=== PATIENT | female | born 1980 | race African-American/Black ===

== ENCOUNTER 2021-06-03 15:49 | Observation (INO) | payer OTHER ==
[2021-06-03 15:53] VITALS: BMI 20.9
[2021-06-03] MEDS ORDERED: ACETAMINOPHEN INJECTION 100 ML IVPB ONE (16:09)
[2021-06-03] MEDS ORDERED: METOCLOPRAMIDE HCL INJECTION 10 MG/2 ML VIAL ONE (16:09)
[2021-06-03] MEDS ORDERED: ACETAMINOPHEN 1000 MG/100 ML VIAL (NON FORMULARY) IVPB ONE (16:23)
[2021-06-03] MEDS ORDERED: MAGNESIUM 1GM/D5W 100ML - 100 ML IVPB IVPB ONE (16:23)
[2021-06-03] MEDS ORDERED: METOCLOPRAMIDE HCL INJECTION 10 MG/2 ML VIAL IVPUSH ONE (16:23)
[2021-06-03] MEDS ORDERED: LACTATED RINGERS SOLUTION 1,000 ML/1,000 ML INFUS.BAG IV STA (16:24)
[2021-06-03] MEDS ORDERED: MAGNESIUM 1GM/D5W - 1 GM/100 ML IVPB IVPB ONE (16:29)
[2021-06-03 16:45] LABS: BASO % 0.3 % (0-2.0); EOS % 0.1 % (0-4.5); HEMATOCRIT 38.2 % (32.4-45.2); HEMOGLOBIN 12.3 GM/dL (10.7-15.3); LYMPH % 11.2 % (8-40); MCH 26.4 pg (25.7-33.7); MCHC 32.2 g/dl (32.0-36.0); MEAN CELL VOLUME 82.1 fl (80-96); MEAN PLT VOLUME 7.7 fl (7.5-11.1); MONO % 6.6 % (3.8-10.2); NEUT % 81.8 % (42.8-82.8); PLATELET COUNT 282 10^3/uL (134-434); RBC 4.66 M/mm3 (3.60-5.2); RDW 13.6 % (11.6-15.6); WHITE BLOOD COUNT 9.5 K/mm3 (4.0-10.0)
[2021-06-03 16:51] LABS: INR 1.1 (0.83-1.09); PROTHROMBIN TIME (PATIENT) 13.5 SEC (9.7-13.0)
[2021-06-03 17:02] LABS: CHLORIDE 107 mmol/L (98-107); SODIUM 142 mmol/L (136-145)
[2021-06-03 17:04] LABS: ALBUMIN 4.8 g/dl (3.4-5.0); ANION GAP 12 MMOL/L (8-16); BLOOD UREA NITROGEN 11.6 mg/dL (7-18); CO2 23 mmol/L (21-32); GLUCOSE,RANDOM 81 mg/dL (74-106)
[2021-06-03 17:08] LABS: BILIRUBIN,TOTAL 0.8 mg/dL (0.2-1); CHOLESTEROL 195 mg/dL (50-200); CREATININE 1.2 mg/dL (0.55-1.3); LDL CHOLESTEROL (ONLY SJRH) 91 mg/dL (5-100); SGOT/AST 15 U/L (15-37); SGPT/ALT 14 U/L (13-61); TOT PROT 8.9 g/dl (6.4-8.2); TRIGLYCERIDES 80 mg/dL (0-150)
[2021-06-03 17:09] LABS: ALK PHOS 54 U/L (45-117); HDL CHOLESTEROL 95 mg/dL (40-60)
[2021-06-03] MEDS ORDERED: GABAPENTIN 300 MG CAPSULE PO ONE (17:22)
[2021-06-03] MEDS ORDERED: GABAPENTIN 100 MG CAPSULE ONE (17:35)
[2021-06-03 18:47] LABS: PH,URINE 8.5 (5.0-8.0); URINE APPEARANCE CLEAR; URINE BILIRUBIN NEGATIVE (NEGATIVE); URINE COLOR YELLOW; URINE GLUCOSE (UA) NEGATIVE (NEGATIVE); URINE KETONE NEGATIVE (NEGATIVE); URINE LEUK ESTERASE NEGATIVE (NEGATIVE); URINE NITRITE NEGATIVE (NEGATIVE); URINE PROTEIN NEGATIVE (NEGATIVE); URINE UROBILINOGEN 0.2 mg/dL (0.2-1.0)
[2021-06-03 18:52] LABS: URINE BENZODIAZEPINES NEGATIVE (NEGATIVE)
[2021-06-03 18:53] LABS: OPIATES, URI NEGATIVE (NEGATIVE); PHENCYCLIDINE,URINE NEGATIVE (NEGATIVE)
[2021-06-03 19:17] LABS: COCAINE, UR NEGATIVE (NEGATIVE); METHADONE, UR NEGATIVE (NEGATIVE); URINE AMPHETAMINES NEGATIVE (NEGATIVE); URINE BARBITURATES NEGATIVE (NEGATIVE)
[2021-06-03] MEDS ORDERED: hydrALAZINE HCL 20 MG/ML VIAL IVPUSH PRN (20:13)
[2021-06-03] MEDS ORDERED: LORazepam 2 MG/ML SDV VIAL IVPUSH PRN (20:14)
[2021-06-03] MEDS ORDERED: hydrALAZINE HCL 20 MG/ML VIAL ONE (21:00)
[2021-06-04] MEDS ORDERED: IBUPROFEN 400 MG TABLET (FP) PO ONE ×2 (01:20→01:32)
[2021-06-04] MEDS ORDERED: IBUPROFEN 400 MG TABLET (FP) PO PRN (04:50)
[2021-06-04 05:25] LABS: BASO % 0.2 % (0-2.0); HEMATOCRIT 35.2 % (32.4-45.2); HEMOGLOBIN 11.5 GM/dL (10.7-15.3); MCH 26.8 pg (25.7-33.7); MCHC 32.6 g/dl (32.0-36.0); MEAN CELL VOLUME 82.2 fl (80-96); MONO % 2.6 % (3.8-10.2); NEUT % 91.2 % (42.8-82.8); PLATELET COUNT 247 10^3/uL (134-434); RBC 4.28 M/mm3 (3.60-5.2); RDW 13.5 % (11.6-15.6); WHITE BLOOD COUNT 10.1 K/mm3 (4.0-10.0)
[2021-06-04 05:48] LABS: CALCIUM 8.9 mg/dL (8.5-10.1); CHLORIDE 107 mmol/L (98-107); SODIUM 141 mmol/L (136-145)
[2021-06-04 05:49] LABS: ANION GAP 10 MMOL/L (8-16); BLOOD UREA NITROGEN 12.4 mg/dL (7-18); CO2 23 mmol/L (21-32); GLUCOSE,RANDOM 115 mg/dL (74-106); MAGNESIUM 2.3 mg/dL (1.8-2.4)
[2021-06-04] MEDS ORDERED: DULoxetine HCL 30 MG CAPSULE.DR PO ONE (09:34)
[2021-06-04] MEDS ORDERED: HYDROCHLOROTHIAZIDE 25 MG TABLET (FP) ONE (09:34)
[2021-06-04] MEDS ORDERED: LISINOPRIL 5 MG TABLET ONE (09:34)
[2021-06-04] MEDS ORDERED: DULoxetine HCL 30 MG CAPSULE.DR PO SCH (10:00)
[2021-06-04] MEDS ORDERED: LISINOPRIL 5 MG TABLET PO SCH (10:00)
[2021-06-04] MEDS ORDERED: HYDROCHLOROTHIAZIDE 25 MG TABLET (FP) PO SCH (10:00)
[2021-06-04 10:10] LABS: PLATELET ESTIMATE ADEQUATE
[2021-06-04 11:09] VITALS: TEMP 98.5
[2021-06-04 12:23] LABS: CHOLESTEROL 175 mg/dL (50-200); TRIGLYCERIDES 57 mg/dL (0-150)
[2021-06-04 12:25] LABS: LDL CHOLESTEROL (ONLY SJRH) 84 mg/dL (5-100)
[2021-06-04 12:26] LABS: HDL CHOLESTEROL 85 mg/dL (40-60)
[2021-06-04 16:01] VITALS: BP 149/93; PULSE 75
== END 2021-06-04 16:17 | disposition home or self-care (01) ==
LOC: JER 15:49 → INTOOBSV 17:41 → JERBED 17:41
PROVIDERS: ADMIT Internal Medicine; ATTEND Family Medicine
PROC: 3E0337Z Introduction of Electrolytic and Water Balance Substance into Peripheral Vein, Percutaneous Approach (ICD-10-PCS; principal; 2021-06-03)
DX: F41.0 Panic disorder [episodic paroxysmal anxiety] (principal); G43.909 Migraine, unspecified, not intractable, without status migrainosus; R55 Syncope and collapse; I10 Essential (primary) hypertension; R94.31 Abnormal electrocardiogram [ECG] [EKG]; Q05.9 Spina bifida, unspecified; Q21.0 Ventricular septal defect
CPT/HCPCS: 36415; 70450-TC; 71045-TC-FY; 80048; 80053; 80061; 80307; 81003; 82550; 82553; 82962; 83735; 84484; 85025; 85610; 85730; 93005; 93010; 96361; 96374; 96375; 99285-25; C9803; G0378; J0131; U0003; U0005